=== PATIENT | female | born 2000 | race Caucasian/White ===

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

== ENCOUNTER 2021-02-07 15:32 | Emergency (ER) | payer OTHER ==
[2021-02-07 15:41] VITALS: BP 122/74; PULSE 99; TEMP 97.9; BMI 19.5
[2021-02-07 18:11] LABS: EPI CELLS 17 /uL (0-25.1); HYALINE CASTS 2 /uL (0-3.1); URINE APPEARANCE TURBID; URINE BACTERIA 127 /uL (0-1359); URINE BILIRUBIN NEGATIVE (NEGATIVE); URINE COLOR YELLOW; URINE GLUCOSE (UA) NEGATIVE (NEGATIVE); URINE KETONE NEGATIVE (NEGATIVE); URINE LEUK ESTERASE TRACE (NEGATIVE); URINE NITRITE NEGATIVE (NEGATIVE); URINE PROTEIN NEGATIVE (NEGATIVE); URINE RBC 8 /uL (0-23.9); URINE UROBILINOGEN 0.2 mg/dL (0.2-1.0); URINE WBC 5 /uL (0-25.8)
[2021-02-07 18:25] LABS: CALCIUM 9.4 mg/dL (8.5-10.1)
[2021-02-07 18:26] LABS: ALBUMIN 4.4 g/dl (3.4-5.0); BLOOD UREA NITROGEN 6.5 mg/dL (7-18)
[2021-02-07 18:29] LABS: CREATININE 0.6 mg/dL (0.55-1.3)
[2021-02-07 18:30] LABS: BILIRUBIN,TOTAL 0.3 mg/dL (0.2-1); TOT PROT 8.4 g/dl (6.4-8.2)
== END 2021-02-07 21:39 | disposition home or self-care (01) ==
LOC: JER 15:32
DX: O20.9 Hemorrhage in early pregnancy, unspecified (principal); O26.891 Other specified pregnancy related conditions, first trimester; R10.2 Pelvic and perineal pain; Z3A.10 10 weeks gestation of pregnancy
CPT/HCPCS: 76817-TC; 80053; 81003; 84702; 86850; 86900; 86901; 87086; 99284-25

== ENCOUNTER 2021-07-22 05:19 | Emergency (ER) | payer OTHER ==
[2021-07-22 05:30] VITALS: BP 131/76; PULSE 89; TEMP 98.1; BMI 23.7
[2021-07-22] MEDS ORDERED: FAMOTIDINE 10 MG TABLET PO ONE (07:52)
[2021-07-22] MEDS ORDERED: MAG HYDROX/AL HYDROX/SIMETH -MYLANTA- ORAL SUSPENSION PO ONE (07:52)
[2021-07-22] MEDS ORDERED: FAMOTIDINE 20 MG TABLET ONE (08:18)
[2021-07-22] MEDS ORDERED: MAG HYDROX/AL HYDROX/SIMETH 30 ML UNIT-DOSE CUP ONE (08:19)
[2021-07-22 08:20] LABS: EPI CELLS >36 /uL (0-25.1); HYALINE CASTS 2 /uL (0-3.1); PH,URINE 6.5 (5.0-8.0); URINE APPEARANCE CLOUDY; URINE BACTERIA 4178 /uL (0-1359); URINE BILIRUBIN NEGATIVE (NEGATIVE); URINE COLOR YELLOW; URINE GLUCOSE (UA) NEGATIVE (NEGATIVE); URINE KETONE NEGATIVE (NEGATIVE); URINE LEUK ESTERASE 3+ (NEGATIVE); URINE NITRITE NEGATIVE (NEGATIVE); URINE PROTEIN NEGATIVE (NEGATIVE); URINE RBC 12 /uL (0-23.9); URINE UROBILINOGEN 0.2 mg/dL (0.2-1.0); URINE WBC 1244 /uL (0-25.8)
== END 2021-07-22 09:40 | disposition home or self-care (01) ==
LOC: JER 05:19
DX: O26.893 Other specified pregnancy related conditions, third trimester (principal); R10.13 Epigastric pain; Z3A.33 33 weeks gestation of pregnancy
CPT/HCPCS: 81003; 87086; 99283-25

== ENCOUNTER 2021-09-06 03:05 | Inpatient (IN) | payer OTHER ==
[2021-09-06] MEDS ORDERED: DEXTROSE 5%-LACTATED RINGERS 1,000 ML IV SCH (03:45)
[2021-09-06] MEDS ORDERED: NIFEdipine E.R. 30 MG TABLET ONE (04:36)
[2021-09-06 04:41] LABS: BASO % 0.4 % (0-2.0); EOS % 0.7 % (0-4.5); HEMATOCRIT 30.6 % (32.4-45.2); LYMPH % 19.5 % (8-40); MCH 27.2 pg (25.7-33.7); MCHC 32.9 g/dl (32.0-36.0); MEAN CELL VOLUME 82.8 fl (80-96); MEAN PLT VOLUME 10.1 fl (7.5-11.1); MONO % 6.7 % (3.8-10.2); NEUT % 72.7 % (42.8-82.8); PLATELET COUNT 161 10^3/uL (134-434); RBC 3.69 M/mm3 (3.60-5.2); RDW 16.9 % (11.6-15.6); RETICULOCYTES 1.94 % (0.5-1.5); WHITE BLOOD COUNT 10.2 K/mm3 (4.0-10.0)
[2021-09-06 04:46] LABS: INR 0.9 (0.83-1.09); PROTHROMBIN TIME (PATIENT) 10.3 SEC (9.7-13.0)
[2021-09-06 04:49] LABS: ACTIVATED PTT 24.5 SECONDS (25.2-36.5)
[2021-09-06] MEDS ORDERED: NIFEdipine E.R. 30 MG TABLET PO ONE (04:52)
[2021-09-06 04:54] VITALS: BMI 27.6
[2021-09-06] MEDS ORDERED: FENTANYL/BUPIVACAINE/NS/PF - PCEA - 50 ML DISP.SYRIN EP ONE ×3 (04:56→12:18)
[2021-09-06] MEDS ORDERED: ELECTROLYTE-148 SOLN 1,000 ML IV SCH (05:00)
[2021-09-06 05:10] LABS: BLOOD UREA NITROGEN 5.1 mg/dL (7-18); CALCIUM 8.4 mg/dL (8.5-10.1); URIC ACID 3.8 mg/dL (2.6-7.2)
[2021-09-06 05:13] LABS: CREATININE 0.5 mg/dL (0.55-1.3)
[2021-09-06] MEDS: FENTANYL/BUPIVACAINE/NS/PF - PCEA - 50 ML DISP.SYRIN EP SCH ×3 (05:15→12:35)
[2021-09-06] MEDS ORDERED: NALOXONE HCL 0.4 MG/ML VIAL IVPUSH PRN (05:36)
[2021-09-06 06:00] LABS: EPI CELLS >36 /uL (0-25.1); HYALINE CASTS 7 /uL (0-3.1); URINE APPEARANCE CLEAR; URINE BACTERIA 29 /uL (0-1359); URINE BILIRUBIN NEGATIVE (NEGATIVE); URINE COLOR YELLOW; URINE GLUCOSE (UA) NEGATIVE (NEGATIVE); URINE KETONE NEGATIVE (NEGATIVE); URINE LEUK ESTERASE NEGATIVE (NEGATIVE); URINE NITRITE NEGATIVE (NEGATIVE); URINE PROTEIN 4+ (NEGATIVE); URINE RBC 52 /uL (0-23.9); URINE UROBILINOGEN 0.2 mg/dL (0.2-1.0); URINE WBC 10 /uL (0-25.8)
[2021-09-06] MEDS ORDERED: MAGNESIUM SULFATE 20GM/500ML - 20 GM/500 ML INFUS.BAG ONE (08:04)
[2021-09-06] MEDS ORDERED: MAGNESIUM 4GM/H20 - 4 GM/100 ML IVPB IVPB ONE (08:04)
[2021-09-06] MEDS ORDERED: MAGNESIUM SULFATE 20GM/500ML - 20 GM/500 ML INFUS.BAG IVPB SCH (08:15)
[2021-09-06] MEDS ORDERED: MAGNESIUM 4GM/H20 - 4 GM/100 ML IVPB IVPB SCH (08:30)
[2021-09-06] MEDS ORDERED: BUPIVACAINE HCL/PF 0.25% (2.5MG/ML) 10 ML VIAL ONE ×2 (10:22→12:21)
[2021-09-06] MEDS ORDERED: LIDOCAINE HCL 1% PRESERVATIVE FREE - 30ML VIAL ONE ×2 (13:45→16:03)
[2021-09-06] MEDS ORDERED: OXYTOCIN 20 UNITS in 0.9% NS 20 UNIT/1,000 ML INFUS.BAG IV ONE ×2 (13:45→16:09)
[2021-09-06] MEDS: OXYTOCIN 20 UNITS in 0.9% NS 20 UNIT/1,000 ML INFUS.BAG IV SCH ×2 (14:58→16:15)
[2021-09-06] MEDS ORDERED: MISOPROSTOL 200 MCG TABLET ONE (15:18)
[2021-09-06 15:57] LABS: CORD BASE EXCESS -7.8 mmol/L (0-2); CORD HCO3 21.2 mmHg (20-29); CORD PCO2 56.5 mmHg (30-78); CORD pH 7.193 (7.14-7.44)
[2021-09-06 15:58] LABS: CORD BASE EXCESS -5.5 mmol/L (0-2); CORD HCO3 21.5 mmHg (20-29); CORD pH 7.278 (7.14-7.44)
[2021-09-06] MEDS ORDERED: PROMETHAZINE HCL 25 MG/1 ML VIAL ONE (16:18)
[2021-09-06] MEDS ORDERED: BUTORPHANOL TARTRATE 2 MG/ML VIAL ONE (16:18)
[2021-09-06] MEDS ORDERED: BUTORPHANOL TARTRATE 2 MG/ML VIAL IVPUSH ONE (16:25)
[2021-09-06] MEDS ORDERED: ceFAZolin SODIUM 1 GM VIAL ONE (16:48)
[2021-09-06] MEDS: CEFAZOLIN SODIUM 2 GM in DEXTROSE 5%-WATER 100 ML IVPB SCH (16:50)
[2021-09-06] MEDS ORDERED: BISACODYL 10 MG SUPP.RECT RC PRN (17:24)
[2021-09-06] MEDS ORDERED: WITCH HAZEL 50% (TUCKS) 40 PAD/JAR PAD TP PRN (17:24)
[2021-09-06] MEDS ORDERED: BENZOCAINE 20% 57 GM BOTTLE TP PRN (17:24)
[2021-09-06] MEDS ORDERED: ACETAMINOPHEN 325 MG TABLET (FP) PO PRN (17:24)
[2021-09-06] MEDS ORDERED: METHYLERGONOVINE MALEATE 0.2 MG/1 ML AMP IM PRN (17:24)
[2021-09-06] MEDS ORDERED: BENZOCAINE 28 GM HEMORRHOIDAL OINTMENT TP PRN (17:24)
[2021-09-06] MEDS ORDERED: oxyCODONE HCL 5 MG TABLET PO PRN (17:24)
[2021-09-06] MEDS ORDERED: IBUPROFEN 600 MG TABLET (FP) PO PRN (17:24)
[2021-09-06] MEDS ORDERED: MISOPROSTOL 200 MCG TABLET PV ONE (17:26)
[2021-09-06] MEDS ORDERED: PROMETHAZINE HCL 25 MG/1 ML VIAL IVPUSH ONE (17:57)
[2021-09-06] MEDS ORDERED: ceFAZolin 2 GRAM PREMIX BAG IVPB SCH (18:00)
[2021-09-06 18:19] LABS: HEMOGLOBIN 7.7 GM/dL (10.7-15.3); MCH 26.7 pg (25.7-33.7); MEAN CELL VOLUME 83.2 fl (80-96); MEAN PLT VOLUME 10.1 fl (7.5-11.1); PLATELET COUNT 145 10^3/uL (134-434); RBC 2.89 M/mm3 (3.60-5.2); RDW 17.3 % (11.6-15.6); WHITE BLOOD COUNT 17.6 K/mm3 (4.0-10.0)
[2021-09-07] MEDS: CEFAZOLIN SODIUM 2 GM in DEXTROSE 5%-WATER 100 ML IVPB SCH ×3 (00:19→17:16)
[2021-09-07] MEDS ORDERED: SENNOSIDES/DOCUSATE COMBO (SENNA PLUS) TABLET (UD) PO PRN (22:00)
[2021-09-08 08:04] LABS: HEMATOCRIT 22.2 % (32.4-45.2); HEMOGLOBIN 7.5 GM/dL (10.7-15.3); MCH 27.9 pg (25.7-33.7); MCHC 33.5 g/dl (32.0-36.0); MEAN CELL VOLUME 83.2 fl (80-96); MEAN PLT VOLUME 9.6 fl (7.5-11.1); PLATELET COUNT 139 10^3/uL (134-434); RBC 2.67 M/mm3 (3.60-5.2); RDW 16.6 % (11.6-15.6); WHITE BLOOD COUNT 11.3 K/mm3 (4.0-10.0)
[2021-09-08 11:43] VITALS: BP 124/74; PULSE 102; RESP 16; TEMP 98.4
== END 2021-09-08 13:15 | disposition home or self-care (01) | DRG 542 ==
LOC: JDEL 03:05 → JLDR 03:35 → J3W 22:08
PROVIDERS: ADMIT Obstetrics & Gynecology; ATTEND Obstetrics & Gynecology
PROC: 10E0XZZ Delivery of Products of Conception, External Approach (ICD-10-PCS; principal; 2021-09-06)
PROC: 0W3R7ZZ Control Bleeding in Genitourinary Tract, Via Natural or Artificial Opening (ICD-10-PCS; 2021-09-06)
PROC: 30233N1 Transfusion of Nonautologous Red Blood Cells into Peripheral Vein, Percutaneous Approach (ICD-10-PCS; 2021-09-06)
PROC: 0W8NXZZ Division of Female Perineum, External Approach (ICD-10-PCS; 2021-09-06)
DX: O14.04 Mild to moderate pre-eclampsia, complicating childbirth (principal); O72.1 Other immediate postpartum hemorrhage; O48.0 Post-term pregnancy; Z3A.40 40 weeks gestation of pregnancy; Z37.0 Single live birth
CPT/HCPCS: 36415; 36430; 36600; 59409; 80048; 81003; 82803; 82977; 83010; 83735; 84450; 84460; 84550; 85025; 85027; 85045; 85610; 85730; 86780; 86850; 86900; 86901; 86922; C9803-CS; P9058; U0003; U0005

== ENCOUNTER 2021-09-23 21:03 | Emergency (ER) | payer OTHER ==
[2021-09-23 21:31] VITALS: BP 119/82; PULSE 92; RESP 17; TEMP 98.6; BMI 21.2
[2021-09-23] MEDS ORDERED: ACETAMINOPHEN 1000 MG/100 ML BAG IVPB ONE (21:45)
[2021-09-23] MEDS ORDERED: SODIUM CHLORIDE 0.9% 500 ML INFUS.BAG IV ONE (21:45)
[2021-09-23] MEDS ORDERED: ONDANSETRON 4 MG/2 ML VIAL IVPUSH ONE (21:45)
[2021-09-23] MEDS ORDERED: FAMOTIDINE 20 MG/50 ML IVPB 20 MG/50 ML MG IVPB ONE ×2 (21:53→22:11)
[2021-09-23] MEDS ORDERED: MAG HYDROX/AL HYDROX/SIMETH 30 ML UNIT-DOSE CUP PO ONE (21:53)
[2021-09-23] MEDS ORDERED: MAG HYDROX/AL HYDROX/SIMETH 30 ML UNIT-DOSE CUP ONE (22:10)
[2021-09-23] MEDS ORDERED: ACETAMINOPHEN INJECTION 100 ML IVPB ONE (22:10)
[2021-09-23] MEDS ORDERED: ONDANSETRON 4 MG/2 ML VIAL ONE (22:11)
[2021-09-23 22:14] LABS: BASO % 0.5 % (0-2.0); EOS % 0.3 % (0-4.5); HEMATOCRIT 30.6 % (32.4-45.2); HEMOGLOBIN 10.2 GM/dL (10.7-15.3); LYMPH % 14.1 % (8-40); MCH 26.9 pg (25.7-33.7); MCHC 33.4 g/dl (32.0-36.0); MEAN CELL VOLUME 80.7 fl (80-96); MEAN PLT VOLUME 7.6 fl (7.5-11.1); MONO % 2.2 % (3.8-10.2); NEUT % 82.9 % (42.8-82.8); PLATELET COUNT 406 10^3/uL (134-434); RBC 3.79 M/mm3 (3.60-5.2); RDW 17.3 % (11.6-15.6); WHITE BLOOD COUNT 6.7 K/mm3 (4.0-10.0)
[2021-09-23 22:23] LABS: ACTIVATED PTT 22.5 SECONDS (25.2-36.5)
[2021-09-23 22:24] LABS: INR 1.14 (0.83-1.09); PROTHROMBIN TIME (PATIENT) 13.1 SEC (9.7-13.0)
[2021-09-23 22:38] LABS: BLOOD UREA NITROGEN 10.4 mg/dL (7-18); CALCIUM 9.6 mg/dL (8.5-10.1); MAGNESIUM 2.2 mg/dL (1.8-2.4)
[2021-09-23 22:42] LABS: CREATININE 0.5 mg/dL (0.55-1.3)
[2021-09-23 22:44] LABS: BILIRUBIN,TOTAL 0.4 mg/dL (0.2-1); TOT PROT 7.6 g/dl (6.4-8.2)
[2021-09-24] MEDS ORDERED: SUCRALFATE 1 GM/10 ML UNIT DOSE CUPS PO ONE (00:33)
[2021-09-24] MEDS ORDERED: SUCRALFATE 1 GM TABLET (FP) ONE (03:00)
== END 2021-09-24 03:07 | disposition home or self-care (01) ==
LOC: JER 21:03
PROC: 3E033GC Introduction of Other Therapeutic Substance into Peripheral Vein, Percutaneous Approach (ICD-10-PCS; principal; 2021-09-23)
DX: R10.13 Epigastric pain (principal)
CPT/HCPCS: 36415; 76705-TC; 76856-TC; 80053; 82962; 83690; 83735; 85025; 85610; 85730; 86850; 86900; 86901; 93005; 93010; 99285-25; C9803-CS; U0003; U0005

== ENCOUNTER 2022-01-21 19:59 | Emergency (ER) | payer OTHER ==
[2022-01-21 20:22] VITALS: BP 123/80; PULSE 130; RESP 20; TEMP 100.3; BMI 22.6
[2022-01-21] MEDS ORDERED: IBUPROFEN 600 MG TABLET (FP) PO ONE (20:52)
[2022-01-21] MEDS ORDERED: DEXAMETHASONE SOD PHOSPHATE 10 MG/1 ML VIAL IM ONE (20:52)
== END 2022-01-21 21:49 | disposition left against medical advice (07) ==
LOC: JER 19:59
PROC: 3E023GC Introduction of Other Therapeutic Substance into Muscle, Percutaneous Approach (ICD-10-PCS; principal; 2022-01-21)
DX: B34.9 Viral infection, unspecified (principal)
CPT/HCPCS: 0241U-QW; 99284-25

== ENCOUNTER 2022-05-27 18:07 | Emergency (ER) | payer OTHER ==
[2022-05-27 18:21] VITALS: BP 110/73; PULSE 81; RESP 18; TEMP 98.1; BMI 22.6
[2022-05-27] MEDS ORDERED: SODIUM CHLORIDE 0.9% 500 ML INFUS.BAG IV ONE (18:58)
[2022-05-27] MEDS ORDERED: ONDANSETRON 4 MG/2 ML VIAL IVPUSH ONE (18:58)
[2022-05-27] MEDS ORDERED: ACETAMINOPHEN 1000 MG/100 ML BAG IVPB ONE (18:58)
[2022-05-27] MEDS ORDERED: ONDANSETRON 4 MG/2 ML VIAL ONE (19:34)
[2022-05-27] MEDS ORDERED: ACETAMINOPHEN INJECTION 100 ML IVPB ONE (19:34)
[2022-05-27 21:23] LABS: BASO % 0.2 % (0-2.0); EOS % 0.1 % (0-4.5); HEMOGLOBIN 12.3 GM/dL (10.7-15.3); LYMPH % 9.9 % (8-40); MCH 26.5 pg (25.7-33.7); MCHC 33.1 g/dl (32.0-36.0); MEAN CELL VOLUME 79.8 fl (80-96); MEAN PLT VOLUME 9.5 fl (7.5-11.1); MONO % 2.9 % (3.8-10.2); NEUT % 86.9 % (42.8-82.8); PLATELET COUNT 270 10^3/uL (134-434); RBC 4.64 M/mm3 (3.60-5.2); RDW 16.9 % (11.6-15.6); WHITE BLOOD COUNT 10.7 K/mm3 (4.0-10.0)
[2022-05-27 21:24] LABS: PH,URINE 7.5 (5.0-8.0); URINE APPEARANCE TURBID; URINE BILIRUBIN NEGATIVE (NEGATIVE); URINE COLOR YELLOW; URINE GLUCOSE (UA) NEGATIVE (NEGATIVE); URINE KETONE NEGATIVE (NEGATIVE); URINE LEUK ESTERASE NEGATIVE (NEGATIVE); URINE NITRITE NEGATIVE (NEGATIVE); URINE PROTEIN NEGATIVE (NEGATIVE); URINE UROBILINOGEN 0.2 mg/dL (0.2-1.0)
[2022-05-27 21:48] LABS: CALCIUM 9.5 mg/dL (8.5-10.1)
[2022-05-27 21:49] LABS: ALBUMIN 4.7 g/dl (3.4-5.0)
[2022-05-27 21:52] LABS: CREATININE 0.5 mg/dL (0.55-1.3)
[2022-05-27 21:54] LABS: BILIRUBIN,TOTAL 0.4 mg/dL (0.2-1); TOT PROT 8.7 g/dl (6.4-8.2)
== END 2022-05-27 23:13 | disposition home or self-care (01) ==
LOC: JER 18:07
PROC: 3E0333Z Introduction of Anti-inflammatory into Peripheral Vein, Percutaneous Approach (ICD-10-PCS; principal; 2022-05-27)
DX: R10.13 Epigastric pain (principal); R11.2 Nausea with vomiting, unspecified; R10.32 Left lower quadrant pain; R10.12 Left upper quadrant pain
CPT/HCPCS: 36415; 74018-TC-FY; 80053; 81003; 83690; 84703; 85025; 87086; 99284-25

== ENCOUNTER 2024-02-29 22:51 | Observation (INO) | payer OTHER ==
[2024-02-29] MEDS ORDERED: ACETAMINOPHEN INJECTION 100 ML ONE (23:55)
[2024-03-01] MEDS: SODIUM CHLORIDE 0.9% 500 ML INFUS.BAG IV ONE ×2 (00:27)
[2024-03-01] MEDS: ACETAMINOPHEN 1000 MG/100 ML BAG IVPB ONE (00:27)
[2024-03-01 00:31] LABS: BASO % 0.1 % (0-2.0); EOS % 0.2 % (0-4.5); HEMATOCRIT 37.6 % (32.4-45.2); HEMOGLOBIN 12.6 GM/dL (10.7-15.3); LYMPH % 5.7 % (8-40); MCH 28.1 pg (25.7-33.7); MCHC 33.4 g/dl (32.0-36.0); MEAN CELL VOLUME 84.1 fl (80-96); MEAN PLT VOLUME 9.6 fl (7.5-11.1); PLATELET COUNT 191 10^3/uL (134-434); RBC 4.47 M/mm3 (3.60-5.2); RDW 15.4 % (11.6-15.6); WHITE BLOOD COUNT 14.5 K/mm3 (4.0-10.0)
[2024-03-01 00:32] LABS: PH,URINE 5.5 (5.0-8.0); URINE APPEARANCE CLEAR; URINE BILIRUBIN NEGATIVE (NEGATIVE); URINE COLOR DK YELLOW; URINE GLUCOSE (UA) NEGATIVE (NEGATIVE); URINE KETONE 4+ (NEGATIVE); URINE LEUK ESTERASE NEGATIVE (NEGATIVE); URINE NITRITE NEGATIVE (NEGATIVE); URINE PROTEIN TRACE (NEGATIVE)
[2024-03-01 00:39] LABS: INR 1.07 (0.83-1.09); PROTHROMBIN TIME (PATIENT) 12.3 SEC (9.7-13.0)
[2024-03-01 00:42] LABS: ACTIVATED PTT 25.5 SECONDS (25.2-36.5)
[2024-03-01 00:47] LABS: POTASSIUM 3.7 mmol/L (3.5-5.1)
[2024-03-01 00:48] LABS: CALCIUM 9.2 mg/dL (8.5-10.1)
[2024-03-01 00:49] LABS: ALBUMIN 4.2 g/dl (3.4-5.0); BLOOD UREA NITROGEN 9.5 mg/dL (7-18); MAGNESIUM 1.9 mg/dL (1.8-2.4)
[2024-03-01 00:51] LABS: PHOSPHOROUS 3.8 mg/dL (2.5-4.9)
[2024-03-01 00:52] LABS: CREATININE 0.4 mg/dL (0.55-1.3)
[2024-03-01 00:53] LABS: BILIRUBIN,TOTAL 0.4 mg/dL (0.2-1)
[2024-03-01 00:55] LABS: TOT PROT 7.8 g/dl (6.4-8.2)
[2024-03-01] MEDS: PYRIDOXINE HCL (B-6) 100 MG TABLET PO ONE (00:56)
[2024-03-01] MEDS ORDERED: ONDANSETRON 4 MG/2 ML VIAL ONE (02:19)
[2024-03-01] MEDS: ONDANSETRON 4 MG/2 ML VIAL IVPB ONE (02:20)
[2024-03-01 08:13] LABS: BASO % 0.1 % (0-2.0); EOS % 0.2 % (0-4.5); HEMATOCRIT 31.4 % (32.4-45.2); HEMOGLOBIN 10.9 GM/dL (10.7-15.3); LYMPH % 8.9 % (8-40); MCHC 34.5 g/dl (32.0-36.0); NEUT % 86.8 % (42.8-82.8); PLATELET COUNT 157 10^3/uL (134-434); RBC 3.74 M/mm3 (3.60-5.2); RDW 15.3 % (11.6-15.6); WHITE BLOOD COUNT 9.2 K/mm3 (4.0-10.0)
[2024-03-01 08:16] LABS: POTASSIUM 3.8 mmol/L (3.5-5.1)
[2024-03-01 08:23] LABS: ALBUMIN 3.4 g/dl (3.4-5.0); BLOOD UREA NITROGEN 9.8 mg/dL (7-18); CALCIUM 8.4 mg/dL (8.5-10.1); MAGNESIUM 1.9 mg/dL (1.8-2.4)
[2024-03-01 08:26] LABS: HIV INTERPRETATION NEGATIVE (NEGATIVE)
[2024-03-01 08:27] LABS: CREATININE 0.4 mg/dL (0.55-1.3); PHOSPHOROUS 3.6 mg/dL (2.5-4.9)
[2024-03-01 08:28] LABS: BILIRUBIN,TOTAL 0.6 mg/dL (0.2-1); TOT PROT 6.3 g/dl (6.4-8.2)
[2024-03-01 09:34] VITALS: BMI 23.4
[2024-03-01] MEDS ORDERED: PYRIDOXINE HCL (B-6) 50 MG TABLET (FP) PO SCH (10:00)
[2024-03-01] MEDS: ENOXAPARIN NA (PORCINE) 40 MG/0.4 ML DISP.SYRIN SQ SCH (10:42)
[2024-03-01] MEDS: PYRIDOXINE HCL (B-6) 50 MG TABLET (FP) PO SCH (10:42)
[2024-03-01] MEDS: THIAMINE HCL 200 MG/2 ML VIAL IVPB SCH (10:42)
[2024-03-01] MEDS: DEXTROSE 5%-NORMAL SALINE 1,000 ML IV SCH (14:00)
[2024-03-01] MEDS: CEFTRIAXONE 1 G/50 ML PREMIX 1 ML IVPB SCH (14:01)
[2024-03-01] MEDS: ONDANSETRON 4 MG/2 ML VIAL IVPUSH PRN (18:01)
[2024-03-02 10:59] VITALS: BP 96/62; PULSE 72; RESP 16; TEMP 97.9
[2024-03-02 12:36] LABS: BASO % 0.2 % (0-2.0); EOS % 0.7 % (0-4.5); HEMATOCRIT 33.3 % (32.4-45.2); LYMPH % 33.5 % (8-40); MCH 28.4 pg (25.7-33.7); MCHC 33.1 g/dl (32.0-36.0); MEAN CELL VOLUME 85.8 fl (80-96); MEAN PLT VOLUME 9.6 fl (7.5-11.1); MONO % 9.5 % (3.8-10.2); NEUT % 56.1 % (42.8-82.8); PLATELET COUNT 166 10^3/uL (134-434); RBC 3.88 M/mm3 (3.60-5.2); RDW 15.1 % (11.6-15.6); WHITE BLOOD COUNT 4.7 K/mm3 (4.0-10.0)
[2024-03-02 13:03] LABS: POTASSIUM 3.9 mmol/L (3.5-5.1)
[2024-03-02 13:04] LABS: ALBUMIN 3.4 g/dl (3.4-5.0); BLOOD UREA NITROGEN 3.8 mg/dL (7-18); CALCIUM 8.9 mg/dL (8.5-10.1)
[2024-03-02 13:05] LABS: MAGNESIUM 1.8 mg/dL (1.8-2.4)
[2024-03-02 13:08] LABS: CREATININE 0.4 mg/dL (0.55-1.3)
[2024-03-02 13:10] LABS: BILIRUBIN,TOTAL 0.4 mg/dL (0.2-1); TOT PROT 6.5 g/dl (6.4-8.2)
== END 2024-03-02 13:28 | disposition home or self-care (01) ==
LOC: JER 22:51 → JERBED 03-01 05:21 → J7W 03-01 05:57
PROVIDERS: ADMIT Internal Medicine
PROC: 3E033NZ Introduction of Analgesics, Hypnotics, Sedatives into Peripheral Vein, Percutaneous Approach (ICD-10-PCS; principal; 2024-03-01)
PROC: 3E033GC Introduction of Other Therapeutic Substance into Peripheral Vein, Percutaneous Approach (ICD-10-PCS; 2024-03-01)
DX: O21.8 Other vomiting complicating pregnancy (principal); Z3A.09 9 weeks gestation of pregnancy; K52.9 Noninfective gastroenteritis and colitis, unspecified
CPT/HCPCS: 0241U-QW; 36415; 76705-TC; 76856-TC; 80053; 81003; 83690; 83735; 84100; 84703; 85025; 85610; 85730; 86803; 86850; 86900; 86901; 87086; 87389; 93005; 93010; 96365; 96372; 96375; 96376; 99285-25; G0378; J0131

== ENCOUNTER 2024-12-11 15:51 | Emergency (ER) | payer OTHER ==
[2024-12-11 15:56] VITALS: BP 121/70; PULSE 78; RESP 18; TEMP 97.9; BMI 23.0
[2024-12-11] MEDS ORDERED: GABAPENTIN 300 MG CAPSULE ONE (16:46)
[2024-12-11] MEDS ORDERED: IBUPROFEN 600 MG TABLET (FP) PO ONE (16:47)
[2024-12-11] MEDS: IBUPROFEN 600 MG TABLET (FP) PO ONE (16:51)
[2024-12-11] MEDS: GABAPENTIN 300 MG CAPSULE PO ONE (16:52)
[2024-12-11 17:43] LABS: HCV DIAGNOSTIC IN-HOUSE W/RFLX NON-REACTIVE (NONREACTIVE); HIV INTERPRETATION NEGATIVE (NEGATIVE)
== END 2024-12-11 17:20 | disposition home or self-care (01) ==
LOC: JERFT 15:51
DX: R21 Rash and other nonspecific skin eruption (principal); B02.9 Zoster without complications
CPT/HCPCS: 36415; 86803; 87252; 87389; 99283-25